=== PATIENT | male | born 1965 | race Caucasian/White ===

== ENCOUNTER 2020-12-18 08:12 | Outpatient (CLI) | payer OTHER, SELFPAY ==
[2020-12-18 08:10] VITALS: BP 125/75; PULSE 88; RESP 16; TEMP 36.5; O2SAT 95; BMI 23.8
[2020-12-18 08:46] VITALS: BP 125/70; PULSE 87; RESP 18; TEMP 37.1; O2SAT 94
[2020-12-18 09:50] VITALS: BP 116/73; PULSE 92; RESP 17; TEMP 38
--- NOTE | 2020-12-18 10:07 | PC.NURSE ---
100.4 TEMP NOTED AT TIME OF D/C, PATIENT INSTRUCTED TO TAKE TYLENOL DIRECTED EVERY 4-6 HOURS AND ENCOURAGED TO PUSH FLUIDS. HE IS ALERT AND ORIENTED AT THE TIME OF D/C. PATIENT AND SPOUSE VERBALIZED UNDERSTANDING. NO CONCERNS ARE NOTED. VITALS OTHERWISE NORMAL.
== END 2020-12-18 08:13 | disposition home or self-care (01) ==
PROVIDERS: PCP Family Medicine; Visit Provider Family Medicine
DX: U07.1 COVID-19 (principal)
CPT/HCPCS: 96365

== ENCOUNTER 2020-12-22 17:24 | Emergency (ER) | payer OTHER, SELFPAY ==
[2020-12-22 17:57] VITALS: BP 115/79; PULSE 77; RESP 16; TEMP 36.3; O2SAT 96; BMI 23.6
--- NOTE | 2020-12-22 18:08 | XRR_ITS ---
PROCEDURE INFORMATION: Exam: XR Chest Exam date and time: 12/22/2020 6:08 PM Age: 55 years old Clinical indication: Shortness of breath; Additional info: Evaluate for covid TECHNIQUE: Imaging protocol: XR of the chest. Views: 1 view. COMPARISON: No relevant prior studies available. FINDINGS: Lungs: Bilateral lung opacities, left slightly greater than right, may represent pneumonia. Right basilar atelectasis is also noted. Pleural spaces: Unremarkable. No pleural effusion. No pneumothorax. Heart/Mediastinum: Unremarkable. No cardiomegaly. Bones/joints: Unremarkable. XR/XR chest 1V portable [id number] IMPRESSION: Multilobar pneumonia.
--- NOTE | 2020-12-22 19:23 | ECG_ITS ---
[facility] ED Test Date: 2020-12-22 Pat Name: Raz Lucas Department: Room: Gender: Male [employer] Assistant Manager: : [id number] Requested By: Kennedy Noriega Order Number: [id number] Whipple MD: Luz Elena Velasco M.D. Measurements Intervals [place] Rate: 74 P: 67 [place]: 165 QRS: 37 QRSD: 98 T: 37 QT: 376 QTc: 419 Interpretive Statements SINUS RHYTHM No previous ECG available for comparison Electronically Signed On 12-23-2020 7:33:02 CDT by Luz Elena Velasco M.D. [id number]
--- NOTE | 2020-12-22 19:26 | ED_ITS ---
HPI - COVID General: Chief Complaint: COVID symptoms Stated Complaint: fatigue post COVID Time Seen by Provider: 12/22/20 19:25 Triage information: No fever, cough or shortness of breath . No known COVID + exposure last 14 days History of Present Illness: HPI Narrative: 55-year-old male patient comes in today with complaints of shortness of breath. Patient had tested positive for COVID-19 on 09 December. Spouse brought him in due to him not recovering as she had. Patient was prescribed doxycycline and prednisone on 15 December. Patient taken the medication for 4 days but stopped because of not feeling any better. Spouse brought patient today due to concerns that he may be getting worse instead of better. Patient reports he just does not feel well and has some shortness of breath. Patient appears unwell but not toxic. Patient appears no distress. COVID 19 common symptoms: positive dyspnea COVID Results: No Data to Display Review of Systems General: Reports: 10 or more systems reviewed and unremarkable except in HPI and below Resp: Reports: dyspnea Physical Exam Const: COMMON NORMALS: no acute distress and patient oriented x3 GENERAL APPEARANCE: cooperative HENMT: COMMON NORMALS: normocephalic and Normal external nose present HEAD & SCALP: normal to inspection and normocephalic NOSE: Normal external nose present MOUTH: Normal oral and palatal mucosa present Eye: GENERAL EYE: appearance normal, both eyes and all related structures Neck/C-Spine: COMMON NORMALS: full ROM Lymph: LYMPHATIC: no lymphadenopathy noted Chest: COMMONS NORMALS: normal inspection of the chest Resp: COMMON NORMALS: normal respiratory effort EFFORT & INSPECTION: Yes able to speak in complete sentences Cardio: COMMON NORMALS: regular rate and regular rhythm RATE: regular rate RHYTHM: regular rhythm GI: COMMON NORMALS: non-tender : COMMON NORMALS: Yes no CVA tenderness BLADDER/KIDNEY EXAM: Yes no CVA tenderness Back/Pelvis: COMMON NORMALS: no CVA tenderness and thoracic and lumbar spine normal to inspection Extremity: COMMON NORMALS: normal to inspection Neuro: COMMON NORMALS: patient oriented x3 and moves all extremities Psych: COMMON NORMALS: mental status grossly normal and cooperative Skin: COMMON NORMALS: no rashes or lesions noted GENERAL SKIN EXAM: no rashes or lesions noted Course Vital Signs: Vital signs: Vital Signs Temperature 97.3 F L 12/22/20 17:57 Pulse Rate 77 12/22/20 19:56 Respiratory Rate 20 H 12/22/20 19:56 Blood Pressure 114/73 12/22/20 19:56 Pulse Oximetry 97 12/22/20 20:00 MDM - COVID MDM Narrative: Medical decision making narrative: 55-year-old male patient comes in today for persistent shortness of breath. Patient was referred to the ER from the primary care office due to patient's shortness of breath and day 13 of COVID-19 illness. On exam patient's oxygen level is 97% on room air. Remainder of vital signs are normal. Patient does have some crackles on the left lower base on auscultation. Skin is warm and dry. Patient is alert and oriented. Differential diagnosis includes but not limited to pneumonia, COVID- 19, malingering. Chest x-ray do note some pneumonia in bilateral lung membreno. Laboratory values notes a normal blood cell count, CMP did have some elevation in blood sugar at 228, CRP was slightly elevated at 57, the remainder of labs were unremarkable. EKG was unremarkable. I feel the patient is probably recovering from viral pneumonia. I recommended that he continue with the doxycycline that he had stopped taking to cover for any secondary bacterial infections. Recommending continuing patient on dexamethasone 6 mg daily for the next 5 days. Patient was given a work excuse for 7 more days recommended to follow-up with primary care in 1 week. Lab Data: Labs: Lab Results 12/22/20 12/22/20 12/22/20 Range/Units 19:40 19:40 19:40 WBC 9.5 (4.0-10.0) 10^3/ uL RBC 5.17 (4.1-5.3) 10^6/u L Hgb 16.4 (11.7-16.6) g/dL Hct 47.2 (42.0-52.0) % MCV 91.3 (80-94) fL MCH 31.7 (28.0-34.0) pg MCHC 34.7 (30.0-36.0) g/dL RDW 12.7 (12.1-15.1) % Plt Count 213 (130-400) 10^3/c mm MPV 11.4 H (7.4-10.4) fL Neut % (Auto) 66.9 % Lymph % (Auto) 19.5 % Elliott % (Auto) 10.7 % Eos % (Auto) 2.0 % Baso % (Auto) 0.2 % Neut # (Auto) 6.33 (1.8-7.7) 10^3/u L Lymph # (Auto) 1.8 (0.8-4.8) 10^3/u L Elliott # (Auto) 1.0 H (0.2-0.9) 10^3/u L Eos # (Auto) 0.2 (0.0-0.8) 10^3/u L Baso # (Auto) 0.0 (0.0-0.1) 10^3/u L Nucleated RBC % (a uto) 0 % Nucleated RBCs # 0.0 /100WBC Sodium 138 (136-145) mmol/L Potassium 3.8 (3.5-5.1) mmol/L Chloride 102 (98-107) mmol/L Carbon Dioxide 24 (22-29) mmol/L Anion Gap 15.8 (5-19) BUN 17 (6-20) mg/dL Creatinine 1.2 (0.7-1.2) mg/dL GFR Calculation 62.9 L (90-130) mL/min Glucose 228 H (65-115) mg/dL Calculated Osmolal ity 295 (285-295) mOsm/k g Calcium 9.3 (8.5-10.5) mg/dL Total Bilirubin 0.6 (0.15-1.2) mg/dL AST 12 (0-40) U/L ALT 18 (0-41) U/L Alkaline Phosphata se 44 (40-130) IU/L Troponin T Gen 5 n g/L 15 (0-15) ng/L C-Reactive Protein 57.6 H (0.0-4.9) mg/L Total Protein 7.5 (6.6-8.7) g/dL Albumin 4.1 (3.5-5.2) g/dL Globulin 3.4 (1.3-4.6) g/dL EKG Data: EKG 1: Attestation: I personally reviewed and interpreted this EKG as follows: (1945, EKG shows a normal sinus rhythm with a regular rate at [address] elevation or ectopy is noted on exam. No prior exam is noted for comparison.) COVID Results: No Data to Display Discharge Plan Discharge Patient Disposition: Home Clinical Impression: Pneumonia due to COVID-19 virus Condition: Stable Prescriptions: New albuterol sulfate 90 mcg/actuation HFA aerosol inhaler 2 inh inhalation Q4H PRN (Reason: shortness of breath or wheezing) Qty: 8.5 RF: 0 dexamethasone 6 mg tablet 6 mg PO DAILY Qty: 5 RF: 0 Discharge Orders: Discharge ED (Routine); Ordered 12/22/20 Ordered By: Kennedy Olivier Referrals: Gladys Raymundo MD [Primary Care Provider] - Discharge Diet: Usual diet Discharge Activity: Increase activity as tolerated Patient Instructions: Viral Pneumonia (ED), Opioid Safety Activity Restrictions/Additional Instructions: Drink plenty of fluids. Take the rest of the doxycycline antibiotic as directed. Take dexamethasone daily for the next 5 days. Use albuterol inhaler 2 inhalations every 4 hours as needed for shortness of breath, wheezing, or coughing spells. Get plenty of rest. Follow-up with primary care in 1 week. Return to the emergency department for worsening symptoms or new concerns. Coding Level of Care Code ED [employer] Program[employer] for Khad[employer] Fwd Exam Comprehensive
[2020-12-22 19:56] VITALS: BP 114/73; PULSE 77; RESP 20; O2SAT 97
[2020-12-22 19:59] LABS: Basophils % 0.2 %; Eosinophils # 0.2 10^3/uL (0.0-0.8); Hematocrit 47.2 % (42.0-52.0); Hemoglobin 16.4 g/dL (11.7-16.6); Lymphocytes # 1.8 10^3/uL (0.8-4.8); Lymphocytes % 19.5 %; Mean Corpuscular HGB Conc 34.7 g/dL (30.0-36.0); Mean Corpuscular Hemoglobin 31.7 pg (28.0-34.0); Mean Corpuscular Volume 91.3 fL (80-94); Mean Platelet Volume 11.4 fL (7.4-10.4); Monocytes % 10.7 %; Neutrophils # 6.33 10^3/uL (1.8-7.7); Neutrophils % 66.9 %; Nucleated Red Blood Cells % 0 %; Platelet Count 213 10^3/cmm (130-400); Red Blood Count 5.17 10^6/uL (4.1-5.3); Red Cell Distribution Width 12.7 % (12.1-15.1); White Blood Count 9.5 10^3/uL (4.0-10.0)
[2020-12-22 20:00] VITALS: O2SAT 97
[2020-12-22] MEDS: dexamethasone 4 mg/mL INJ 8 MG IVP (20:08)
[2020-12-22] MEDS: sodium chloride 0.9% 1,000 ML 30 ML IV (20:08)
[2020-12-22 20:17] LABS: Troponin T (5th) Once 15 ng/L (0-15)
[2020-12-22 20:19] LABS: Alanine Aminotransferase 18 U/L (0-41); Albumin Level 4.1 g/dL (3.5-5.2); Alkaline Phosphatase 44 IU/L (40-130); Anion Gap 15.8 (5-19); Aspartate Amino Transferase 12 U/L (0-40); Blood Urea Nitrogen 17 mg/dL (6-20); C Reactive Protein 57.6 mg/L (0.0-4.9); Calcium 9.3 mg/dL (8.5-10.5); Carbon Dioxide 24 mmol/L (22-29); Chloride 102 mmol/L (98-107); Globulin 3.4 g/dL (1.3-4.6); Glomerular Filtration Rate 62.9 mL/min (90-130); Glucose 228 mg/dL (65-115); Osmolality Calculated 295 mOsm/kg (285-295); Potassium 3.8 mmol/L (3.5-5.1); Sodium 138 mmol/L (136-145); Total Bilirubin 0.6 mg/dL (0.15-1.2); Total Protein 7.5 g/dL (6.6-8.7)
[2020-12-22 20:58] VITALS: BP 118/81; PULSE 76; RESP 16; O2SAT 97
[2020-12-22 21:01] VITALS: PULSE 69; RESP 17; O2SAT 96
[2020-12-22] MEDS: albuterol 8 gm MDI 2 PUFF INHALATION (21:01)
[2020-12-22 21:09] VITALS: PULSE 68
== END 2020-12-22 20:59 | disposition home or self-care (01) ==
PROVIDERS: Emergency Provider Nurse Practitioner Family; PCP Family Medicine
DX: U07.1 COVID-19 (principal); J12.82 Pneumonia due to coronavirus disease 2019
CPT/HCPCS: 71045; 80053; 84484; 85025; 86140; 93005; 94640; 96374; 99284; J1100; J3535; J7030